=== PATIENT | female | born 1985 | race Caucasian/White ===

== ENCOUNTER 2018-10-29 12:03 | Emergency (ER) | payer SELFPAY ==
[2018-10-29] MEDS ORDERED: NEO/POLY/HC OTIC SUSP 10 ML BTTL ONE (12:13)
--- NOTE | 2018-10-29 12:22 | ED.PDOC ---
History of Present Illness - General Chief Complaint: ENT Problem Stated Complaint: earache right Time Seen by Provider: 10/29/18 12:09 Source: patient Exam Limitations: no limitations - History of Present Illness Initial Comments: Bryce Galvin 33 y/o female came to ER with right ear draining and otalgia for the last 2 days stated had stated had been in swimming pool but does not go under water.Has DM1 on insulin. Timing/Duration: other - see hpi EENT Location: ear (R) Prearrival Treatment: no prearrival treatment Presenting Symptoms: right OTALGIA/OTORRHEA Improving Factors: cold therapy Worsening Factors: nothing Associated Symptoms: other - see hpi Allergies/Adverse Reactions: Allergies NO KNOWN ALLERGY Allergy (Verified 10/29/18 12:20) Home Medications: Ambulatory Orders Amoxicillin [Amoxil] 1,000 mg PO BID 10 Days #40 cap 10/29/18 Insulin NPH Isophane & Reg (Hu [Novolin 70/30 (70-30) 100 Unit/ml] 25 units SC DAILY 10/29/18 Insulin NPH Isophane & Reg (Hu [Novolin 70/30 (70-30) 100 Unit/ml] 30 inj SC BEDTIME 10/29/18 Tramadol HCl 100 mg PO TID PRN #20 tab 10/29/18 Review of Systems - Review of Systems EENTM: States: see HPI, ear pain All other Systems: Reviewed and Negative, No Change from Baseline Past Medical History (General) - Patient Medical History Hx Diabetes: Yes - Female History Patient is a Female of Child Bearing Age (10 -59 yrs old): Yes Hx Last Menstrual Period: 10/24/18 Patient : No Family Medical History - Family History Father Family History: Unknown Physical Exam - Physical Exam General Appearance: Alert, Comfortable, No apparent distress Eye Exam: bilateral normal Ear Exam: right ear: TM perforation, discharge, erythema - ear canal, left ear: auricle normal, canal normal, TM normal Nasal Exam: normal inspection Throat Exam: pharynx normal Neck: supple, normal inspection Cardiovascular/Respiratory: regular rate, rhythm, normal peripheral pulses, normal breath sounds Abdominal Exam: non-tender Neurologic: alert, oriented x 3 Skin Exam: normal color Progress - Progress Progress: 10/29/18 12:26 Instilled 5 drops Corticosporin ear drops right ear Departure - Departure Clinical Impression: Otitis media Qualifiers: Otitis media type: other nonsuppurative Chronicity: acute Laterality: right Recurrence: not specified as recurrent Qualified Code(s): H65.191 - Other acute nonsuppurative otitis media, right ear Otitis externa Qualifiers: Otitis externa type: unspecified type Chronicity: acute Laterality: right Qualified Code(s): H60.501 - Unspecified acute noninfective otitis externa, right ear Time of Disposition: 12:26 Disposition: Discharge to Home or Self Care Condition: Fair Departure Forms: ED Discharge - Pt. Copy, Patient Portal Self Enrollment Instructions: DI for Otitis Externa, Ear Infections (Otitis Media) (DC) Prescriptions: Amoxicillin [Amoxil] 1,000 mg PO BID 10 Days #40 cap Tramadol HCl 100 mg PO TID PRN #20 tab PRN Reason: Pain Home Medications: Ambulatory Orders Amoxicillin [Amoxil] 1,000 mg PO BID 10 Days #40 cap 10/29/18 Insulin NPH Isophane & Reg (Hu [Novolin 70/30 (70-30) 100 Unit/ml] 25 units SC DAILY 10/29/18 Insulin NPH Isophane & Reg (Hu [Novolin 70/30 (70-30) 100 Unit/ml] 30 inj SC BEDTIME 10/29/18 Tramadol HCl 100 mg PO TID PRN #20 tab 10/29/18 Additional Instructions: Need to sign up with primary Md for ENT referral [phone];Continue with Corticosporin ear drops to right ear 3 drops am/pm for 10 days
[2018-10-29 12:28] VITALS: BP 159/98; TEMP 97.2; O2SAT 99
[2018-10-29] MEDS ORDERED: HYDROcodone 10MG/APAP 325MG 1 EA TAB PO ONE (12:33)
[2018-10-29] MEDS ORDERED: NEO/POLY/HC OTIC SUSP 10 ML BTTL RIGHT_EAR ONE (12:39)
== END 2018-10-29 12:42 | disposition home or self-care (01) ==
LOC: ER 12:03
DX: H65.191 Other acute nonsuppurative otitis media, right ear (principal); H60.501 Unspecified acute noninfective otitis externa, right ear; E10.9 Type 1 diabetes mellitus without complications; Z79.4 Long term (current) use of insulin

== ENCOUNTER 2018-11-13 02:04 | Observation (INO) | payer SELFPAY ==
[2018-11-13] MEDS ORDERED: INSULIN, REG.(HUMAN) 100 U/ML VIAL IV ONE (02:11)
[2018-11-13] MEDS ORDERED: PROMETHAZINE HCL INJ 25 MG in SODIUM CHLORIDE 0.9% 50ML 50 ML IVPB ONE ×2 (02:12→08:22)
[2018-11-13] MEDS ORDERED: SODIUM CHLORIDE 0.9% 1000ML 1,000 ML IVS ONE (02:12)
[2018-11-13] MEDS ORDERED: ALUMINUM & MAGNESIUM HYDROXIDE 30 ML UD PO ONE (02:13)
[2018-11-13] MEDS ORDERED: SODIUM CHLORIDE 0.9% 50ML 50 ML ONE ×2 (02:16→08:16)
[2018-11-13] MEDS ORDERED: PROMETHAZINE HCL INJ 25 MG/ML VIAL ONE ×2 (02:16→08:15)
[2018-11-13] MEDS ORDERED: MORPHINE SULFATE INJ 10 MG/ML VIAL IV ONE (02:47)
[2018-11-13] MEDS ORDERED: SUCRALFATE 1 GM/10 ML 1 GM UD PO ONE (03:16)
[2018-11-13] MEDS ORDERED: KCL 20MEQ/D5 1/2NS 1,000 ML IVS ONE (03:26)
--- NOTE | 2018-11-13 03:27 | RAD ---
EXAM: XR Abdomen 2 Views With XR Chest CLINICAL HISTORY: The patient is 33 years old and is Female; abd pain, nv TECHNIQUE: Frontal view of the chest, frontal view of the abdomen/pelvis and upright or decubitus view of the abdomen. COMPARISON: No relevant prior studies available. FINDINGS: LUNGS: Unremarkable. No consolidation. PLEURAL SPACE: Unremarkable. No pneumothorax. HEART: Unremarkable. No cardiomegaly. MEDIASTINUM: Unremarkable. INTRAPERITONEAL SPACE: No free air. GASTROINTESTINAL TRACT: Minimal stool is noted throughout the colon. No dilated loops of bowel are seen. There is a relative paucity of small bowel gas. BONES/JOINTS: Postsurgical change of the proximal right femur is partially visualized. OTHER FINDINGS: Calcification projects in the right lower quadrant. IMPRESSION: 1. No acute cardiopulmonary process. 2. Nonobstructive bowel gas pattern. Relative paucity of small bowel gas which may be secondary to incomplete distention versus fluid-filled loops of bowel. 3. Findings may be secondary to an appendicolith within the right lower quadrant. Electronically signed by: Ca Young MD 11/13/2018 3:25 AM CDT
[2018-11-13] MEDS ORDERED: cloNIDine HCL 0.1 MG TAB PO ONE (03:59)
[2018-11-13] MEDS ORDERED: METOPROLOL TARTRATE INJ 5 MG/5 ML VIAL IV ONE ×2 (04:53→06:06)
[2018-11-13] MEDS ORDERED: LISINOPRIL 10 MG TAB PO ONE (04:53)
[2018-11-13] MEDS ORDERED: PIPERACILLIN/TAZOBACTAM 3.375 GM in SODIUM CHLORIDE 0.9% 100ML 100 ML IVPB ONE (04:55)
--- NOTE | 2018-11-13 04:57 | CT ---
EXAM: CT Abdomen and Pelvis With Intravenous Contrast CLINICAL HISTORY: The patient is 33 years old and is Female; acute epigastric pain, htn, elev wbc, plt and glob TECHNIQUE: Axial computed tomography images of the abdomen and pelvis with intravenous contrast. Sagittal and coronal reformatted images were created and reviewed. This CT exam was performed using one or more of the following dose reduction techniques: automated exposure control, adjustment of the mA and/or kV according to patient size, and/or use of iterative reconstruction technique. COMPARISON: No relevant prior studies available. FINDINGS: LUNG BASES: Dependent densities within the lung bases is noted. PLEURAL SPACE: Small bilateral pleural effusions are present. MEDIASTINUM: Diffuse mucosal thickening involving the distal esophagus is present. ABDOMEN: LIVER: The liver is enlarged. GALLBLADDER AND BILE DUCTS: No calcified stones. No ductal dilation. PANCREAS: The pancreas is atrophic. SPLEEN: Unremarkable. ADRENALS: Unremarkable. No mass. KIDNEYS AND URETERS: Unremarkable. No solid mass. No hydronephrosis. STOMACH AND BOWEL: The stomach is decompressed. The small bowel is also decompressed. Stool is present throughout colon. There is no mucosal thickening or evidence of bowel obstruction. PELVIS: APPENDIX: The appendix is normal in caliber without surrounding inflammation. BLADDER: The bladder is distended. REPRODUCTIVE: Unremarkable as visualized. ABDOMEN and PELVIS: INTRAPERITONEAL SPACE: Free fluid is present within the pelvis which is likely physiologic. No free air. BONES/JOINTS: Postsurgical change of the proximal right femur is present. SOFT TISSUES: The soft tissues are normal. VASCULATURE: Unremarkable. No abdominal aortic aneurysm. LYMPH NODES: Unremarkable. No enlarged lymph nodes. IMPRESSION: 1. Small bilateral pleural effusions with compressive atelectasis. 2. Diffuse mucosal thickening of the esophagus which may be secondary to esophagitis. 3. Significantly distended urinary bladder. Electronically signed by: Ca Young MD 11/13/2018 4:55 AM CDT
[2018-11-13] MEDS ORDERED: PANTOPRAZOLE SODIUM IV 40 MG VIAL IV ONE (04:59)
[2018-11-13] MEDS ORDERED: PIPERACILLIN/TAZOBACTAM 3.375 GM VIAL IVPB ONE (05:01)
[2018-11-13] MEDS ORDERED: SODIUM CHLORIDE 0.9% 100ML 100 ML IVPB ONE ×2 (05:02)
[2018-11-13] MEDS ORDERED: DEXTROSE 10% 1000ML 1,000 ML IVS ONE (05:15)
--- NOTE | 2018-11-13 05:29 | ED.PDOC ---
History of Present Illness - General Chief Complaint: GI Problem Stated Complaint: abdomen pain, N/V, elevated BS Time Seen by Provider: 11/13/18 02:08 Source: patient Exam Limitations: no limitations - History of Present Illness Initial Comments: the patient is a 33-year-old female presenting to the emergency room secondary to acute abdominal pain starting in the epigastric areaproximally 5 hours prior to arrival. She has had several episodes of nausea and vomiting. She is a insulin-dependent diabetic and reports that she has been taking her insulin however she has not been able to check it in quite a while. EMS got a blood sugar around 350 when they picked her up. The patient is in obvious discomfort. She denies any fevers. She states she was feeling fine immediately prior to this. No syncope or near syncope. Only time she has chest pain is when she is throwing up. No rash. No urinary symptoms. No new back pain. the patient is also complaining of otitis externa on the right. Timing/Duration: 4-6 hours Severity: severe Improving Factors: nothing Worsening Factors: nothing Associated Symptoms: loss of appetite, malaise, nausea/vomiting, weakness Allergies/Adverse Reactions: Allergies NO KNOWN ALLERGY Allergy (Verified 11/13/18 02:33) Home Medications: Ambulatory Orders Insulin NPH Isophane & Reg (Hu [Novolin 70/30 (70-30) 100 Unit/ml] 25 units SC DAILY 10/29/18 Insulin NPH Isophane & Reg (Hu [Novolin 70/30 (70-30) 100 Unit/ml] 35 inj SC BEDTIME 10/29/18 Review of Systems - Review of Systems Constitutional: States: malaise EENTM: States: no symptoms reported Respiratory: States: no symptoms reported Cardiology: States: no symptoms reported Gastrointestinal/Abdominal: States: abdominal pain, nausea, vomiting Genitourinary: States: no symptoms reported Musculoskeletal: States: no symptoms reported Skin: States: no symptoms reported Neurological: States: no symptoms reported Endocrine: States: no symptoms reported All other Systems: No Change from Baseline Past Medical History (General) - Patient Medical History Hx Seizures: No Hx Stroke: No Hx Dementia: No Hx Asthma: No Hx of COPD: No Hx Cardiac Disorders: No Hx Congestive Heart Failure: No Hx Pacemaker: No Hx Hypertension: No Hx Thyroid Disease: No Hx Diabetes: Yes Hx Gastroesophageal Reflux: No Hx Renal Disease: No Hx Cancer: No Hx of HIV: No Hx Hepatitis C: No Hx MRSA: No Surgical History: other - Female History Hx Last Menstrual Period: 10/24/18 Patient : No Family Medical History - Family History Father Family History: Unknown Mother Family History: No Known Physical Exam - Physical Exam General Appearance: Alert, Anxious, Obvious distress Eye Exam: bilateral normal Ears, Nose, Throat: hearing grossly normal, normal ENT inspection, normal pharynx Neck: full range of motion, supple Respiratory: lungs clear, normal breath sounds, no respiratory distress, no accessory muscle use Cardiovascular/Chest: normal peripheral pulses, regular rate, rhythm, no edema Peripheral Pulses: radial,right: 2+, radial,left: 2+, dorsalis pedis,right: 2+, dorsalis pedis,left: 2+ Gastrointestinal/Abdominal: other - epigastric discomfort palpation. She does have some guarding. No definite palpable mass. Rectal Exam: deferred Back Exam: no CVA tenderness, no vertebral tenderness Extremity: normal range of motion, non-tender, normal inspection, no pedal edema, no calf tenderness, normal capillary refill Neurologic: hypoid gear generator II-XII nml as tested, alert, oriented x 3 Skin Exam: pallor Comments: Vital Signs - 24 hr 11/13/18 11/13/18 11/13/18 02:05 03:00 04:00 Temperature 98.3 F Pulse Rate [ 99 H 93 H 90 monitor] Respiratory 20 18 16 Rate Blood Pressure 182/116 162/106 184/117 [Right Arm] O2 Sat by Pulse 100 98 100 Oximetry Progress - Progress Progress: 11/13/18 06:47 the patient is a 33-year-old female presenting primarily due to abrupt onset of severe epigastric pain with associated nausea and vomiting. Source of this based on the CT scan is likely significant esophagitis and gastritis. She has received several nausea medications and acid reducing medications. She is continuing to have symptoms so she will be brought in for this. She does appear to have significantly uncontrolled insulin-dependent diabetes. This seems to have some caused her some significant dehydration over the past couple of weeks as she has not been able to monitor her blood sugars. She has received about 2- 1/2 L of IV fluids here today for that. The patient does also have a urinary tract infection and is being started on Zosyn for now. Urine culture is being done. She largely seems to be asymptomatic from the urinary tract infection. The patient also has otitis externa of the right ear. Ciprodex drops are being started for this. The patient also has uncontrolled hypertension. I'm unsure how much of this is chronic and how much of this is reactive. She has received several doses of IV metoprolol. She threw up her oral antihypertensive medications that she was given here. This will need to be followed to determine if she needs chronic treatment. pressures are better than upon arrival however they are still significantly higher than desired. She does have small pleural effusions. I'm uncertain if this is simply normal for her or if this is related to the hypertension itself. This will need to be followed. As far as the patient's hyperglycemia, she actually corrected very quickly with 8 units of IV insulin and indeed I had to supplement her with D10 for a few hours to prevent her from bottoming out. She does seem to be very sensitive to the insulin. Additionally she did receive 2 mg of IV morphine for abdominal pain after she had had an IV piggyback of 25 mg of Phenergan. This did cause her to reduce her respiratory drive and cause some mild desaturations. This was corrected with low-flow oxygen and the patient has since resumed normal saturations. initial lab work showed a significant monocytosis. Probably large part of this is due to dehydration as it did correct with rehydration mostly. This does need to be repeated. This may partially be a reactive thrombocytosis. this does need to be followed to make sure it is not a chronic problem for her. the patient has agreed to the plan above. - Results/Orders Results/Orders: acute abdominal series fails show any acute pathology. No obvious obstruction or perforation. CT of the abdomen and pelvis shows thickening of the distal esophagus consistent with esophagitis. She also does have small bilateral pleural effusions. Laboratory Results - last 24 hr 11/13/18 11/13/18 11/13/18 02:12 02:12 02:25 WBC 13.4 H RBC 4.37 Hgb 12.1 Hct 37.0 MCV 84.6 MCH 27.6 MCHC 32.7 L RDW 13.8 Plt Count 806 H MPV 6.8 L Absolute Neuts (auto) 10.00 H Absolute Lymphs (auto) 2.40 Absolute Monos (auto) 0.60 Absolute Eos (auto) 0.20 Absolute Basos (auto) 0.20 H Neutrophils % 74.5 Lymphocytes % 18.0 L Monocytes % 4.5 Eosinophils % 1.3 Basophils % 1.7 PT INR PTT (SP) D-Dimer, Quantitative Sodium 139 Potassium 4.1 Chloride 96 L Carbon Dioxide 29 Anion Gap 18.1 H BUN 15 Creatinine 0.99 BUN/Creatinine Ratio 15.2 POC Glucose Random Glucose 253 H Serum Osmolality 287.0 Lactic Acid Calcium 10.1 Magnesium 1.9 Total Bilirubin 0.6 AST 31 ALT 17 Alkaline Phosphatase 112 Creatine Kinase CK-MB (CK-2) CK-MB (CK-2) % Troponin I B-Natriuretic Peptide Serum Total Protein 8.8 H Albumin 3.2 Globulin 5.6 H Albumin/Globulin Ratio 0.6 L Amylase 30 Lipase 25 TSH Serum HCG, Qual Urine Color Urine Appearance Urine pH Ur Specific [place] Urine Protein Urine Glucose (UA) Urine Ketones Urine Blood Urine Nitrite Urine Bilirubin Urine Urobilinogen Ur Leukocyte Esterase Urine RBC Urine WBC Ur Epithelial Cells Urine Bacteria Urine Opiates Screen Urine Barbiturates Ur Phencyclidine Scrn U Amphetamin/Meth Scrn U Benzodiazepines Scrn U Cocaine Metab Screen U Cannabinoids Screen Serum Ketones Negative 11/13/18 11/13/18 11/13/18 02:27 03:13 03:13 WBC RBC Hgb Hct MCV MCH MCHC RDW Plt Count MPV Absolute Neuts (auto) Absolute Lymphs (auto) Absolute Monos (auto) Absolute Eos (auto) Absolute Basos (auto) Neutrophils % Lymphocytes % Monocytes % Eosinophils % Basophils % PT INR PTT (SP) D-Dimer, Quantitative Sodium Potassium Chloride Carbon Dioxide Anion Gap BUN Creatinine BUN/Creatinine Ratio POC Glucose 76 Random Glucose Serum Osmolality Lactic Acid Calcium Magnesium Total Bilirubin AST ALT Alkaline Phosphatase Creatine Kinase CK-MB (CK-2) CK-MB (CK-2) % Troponin I B-Natriuretic Peptide Serum Total Protein Albumin Globulin Albumin/Globulin Ratio Amylase Lipase TSH Serum HCG, Qual Negative Urine Color Urine Appearance Urine pH Ur Specific [place] Urine Protein Urine Glucose (UA) Urine Ketones Urine Blood Urine Nitrite Urine Bilirubin Urine Urobilinogen Ur Leukocyte Esterase Urine RBC Urine WBC Ur Epithelial Cells Urine Bacteria Urine Opiates Screen Negative Urine Barbiturates Negative Ur Phencyclidine Scrn Negative U Amphetamin/Meth Scrn Negative U Benzodiazepines Scrn Negative U Cocaine Metab Screen Negative U Cannabinoids Screen Negative Serum Ketones 11/13/18 11/13/18 11/13/18 03:15 03:15 03:15 WBC 8.2 RBC 3.68 L Hgb 10.1 L Hct 31.2 L MCV 84.8 MCH 27.5 MCHC 32.5 L RDW 13.8 Plt Count 579 H MPV 6.6 L Absolute Neuts (auto) 5.70 Absolute Lymphs (auto) 1.80 Absolute Monos (auto) 0.50 Absolute Eos (auto) 0.10 Absolute Basos (auto) 0.10 Neutrophils % 69.7 Lymphocytes % 21.7 Monocytes % 6.4 Eosinophils % 1.2 Basophils % 1.0 PT INR PTT (SP) D-Dimer, Quantitative Sodium Potassium Chloride Carbon Dioxide Anion Gap BUN Creatinine BUN/Creatinine Ratio POC Glucose Random Glucose Serum Osmolality Lactic Acid 2.2 Calcium Magnesium Total Bilirubin AST ALT Alkaline Phosphatase Creatine Kinase 200 H CK-MB (CK-2) 7.4 H* CK-MB (CK-2) % 3.70 Troponin I < 0.02 B-Natriuretic Peptide Serum Total Protein Albumin Globulin Albumin/Globulin Ratio Amylase Lipase TSH Serum HCG, Qual Urine Color Urine Appearance Urine pH Ur Specific [place] Urine Protein Urine Glucose (UA) Urine Ketones Urine Blood Urine Nitrite Urine Bilirubin Urine Urobilinogen Ur Leukocyte Esterase Urine RBC Urine WBC Ur Epithelial Cells Urine Bacteria Urine Opiates Screen Urine Barbiturates Ur Phencyclidine Scrn U Amphetamin/Meth Scrn U Benzodiazepines Scrn U Cocaine Metab Screen U Cannabinoids Screen Serum Ketones 11/13/18 11/13/18 11/13/18 03:24 04:39 04:57 WBC RBC Hgb Hct MCV MCH MCHC RDW Plt Count MPV Absolute Neuts (auto) Absolute Lymphs (auto) Absolute Monos (auto) Absolute Eos (auto) Absolute Basos (auto) Neutrophils % Lymphocytes % Monocytes % Eosinophils % Basophils % PT INR PTT (SP) D-Dimer, Quantitative Sodium Potassium Chloride Carbon Dioxide Anion Gap BUN Creatinine BUN/Creatinine Ratio POC Glucose Random Glucose Serum Osmolality Lactic Acid Calcium Magnesium Total Bilirubin AST ALT Alkaline Phosphatase Creatine Kinase 216 H* CK-MB (CK-2) 7.8 H* CK-MB (CK-2) % 3.61 Troponin I < 0.02 B-Natriuretic Peptide 161.0 H Serum Total Protein Albumin Globulin Albumin/Globulin Ratio Amylase Lipase TSH 1.69 Serum HCG, Qual Urine Color Straw Urine Appearance Clear Urine pH 8.5 H Ur Specific [place] 1.020 Urine Protein 100 H Urine Glucose (UA) 100 H Urine Ketones Negative Urine Blood Moderate H Urine Nitrite Negative Urine Bilirubin Negative Urine Urobilinogen 0.2 Ur Leukocyte Esterase Small H Urine RBC 20-30 H Urine WBC 20-30 H Ur Epithelial Cells 5-10 Urine Bacteria 2+ H Urine Opiates Screen Urine Barbiturates Ur Phencyclidine Scrn U Amphetamin/Meth Scrn U Benzodiazepines Scrn U Cocaine Metab Screen U Cannabinoids Screen Serum Ketones 11/13/18 11/13/18 11/13/18 04:57 04:58 06:24 WBC RBC Hgb Hct MCV MCH MCHC RDW Plt Count MPV Absolute Neuts (auto) Absolute Lymphs (auto) Absolute Monos (auto) Absolute Eos (auto) Absolute Basos (auto) Neutrophils % Lymphocytes % Monocytes % Eosinophils % Basophils % PT 9.9 INR 0.99 PTT (SP) 25.5 D-Dimer, Quantitative 0.72 H* Sodium Potassium Chloride Carbon Dioxide Anion Gap BUN Creatinine BUN/Creatinine Ratio POC Glucose 51 L 97 Random Glucose Serum Osmolality Lactic Acid Calcium Magnesium Total Bilirubin AST ALT Alkaline Phosphatase Creatine Kinase CK-MB (CK-2) CK-MB (CK-2) % Troponin I B-Natriuretic Peptide Serum Total Protein Albumin Globulin Albumin/Globulin Ratio Amylase Lipase TSH Serum HCG, Qual Urine Color Urine Appearance Urine pH Ur Specific [place] Urine Protein Urine Glucose (UA) Urine Ketones Urine Blood Urine Nitrite Urine Bilirubin Urine Urobilinogen Ur Leukocyte Esterase Urine RBC Urine WBC Ur Epithelial Cells Urine Bacteria Urine Opiates Screen Urine Barbiturates Ur Phencyclidine Scrn U Amphetamin/Meth Scrn U Benzodiazepines Scrn U Cocaine Metab Screen U Cannabinoids Screen Serum Ketones EKG shows normal sinus rhythm at 93 bpm area borderline R-wave progression in anterior leads. Nonspecific ST segment changes in numerous leads. QT corrected interval of 527. Normal axis. Departure - Departure Clinical Impression: Dehydration, Thrombocytosis, Uncontrolled hypertension, Pleural effusion, Cystitis, Esophagitis Otitis externa Qualifiers: Otitis externa type: swimmer's ear Chronicity: acute Laterality: right Qualified Code(s): H60.331 - Swimmer's ear, right ear Uncontrolled type 1 diabetes mellitus Qualifiers: Glycemic state: with hyperglycemia Qualified Code(s): E10.65 - Type 1 diabetes mellitus with hyperglycemia Disposition: Admit Patient Condition: Serious Departure Forms: ED Discharge - Pt. Copy, Patient Portal Self Enrollment Referrals: UNKNOWN,PHYSICIAN [Primary Care Provider] - 1-2 Weeks Home Medications: Ambulatory Orders Insulin NPH Isophane & Reg (Hu [Novolin 70/30 (70-30) 100 Unit/ml] 25 units SC DAILY 10/29/18 Insulin NPH Isophane & Reg (Hu [Novolin 70/30 (70-30) 100 Unit/ml] 35 inj SC BEDTIME 10/29/18 Decision To Admit - Decistion To Admit Decision to Admit Reason: Medical Nature Decision to Admit Date: 11/13/18 Decision to Admit Time: 06:55
[2018-11-13] MEDS ORDERED: ONDANSETRON INJ 4 MG/2 ML VIAL ONE (06:13)
[2018-11-13] MEDS ORDERED: ONDANSETRON INJ 4 MG/2 ML VIAL IV ONE (06:13)
[2018-11-13] MEDS ORDERED: CIPROFLOXACIN/DEXAMETH OTIC 7.5ML BOTTLE RIGHT_EAR ONE (06:17)
--- NOTE | 2018-11-13 07:33 | HP ---
SUPERVISING PHYSICIAN: Wilbur Rojas MD CHIEF COMPLAINT: Nausea or vomiting and abdominal pain. HISTORY OF PRESENT ILLNESS: Ms. Galvin is a 33 year-old female who presented to the Emergency Room earlier this morning due to acute onset of abdominal pain in the epigastric region approximately 5 hours prior to arrival after she had eaten supper. She does have a history of insulin-dependent diabetes mellitus and is basically treating herself. She has not been followed by a physician. EMS noted her blood sugar on arrival was 350. She denied fever or chills. She has had some epigastric discomfort, chest pains when she was actually vomiting, otherwise she did have a complaint of a right earache which started approximately a week ago. Her initial laboratory studies on arrival to the Emergency Department showed she had a white count of 13,400 with a hemoglobin of 12.1 and hematocrit 37.0, platelet count of 806,000. Differential showed to be with a mild left shift. Coagulation studies showed a D-dimer that was slightly elevated at 0.72. Chemistries initially showed a blood sugar of 253, potassium 4.1, anion gap was elevated at 18.1. C02 was normal at 29. Liver functions all within normal limits. Magnesium 1.9, lactic acid 2.2, troponin less than 0.02. TSH was normal, test was negative. Amylase and lipase were all within normal limits. She was given Zofran and morphine. It was also noted on her vital signs she was showing to be hypertensive with a blood pressure initially of 182/116. She was treated with Lopressor and Clonidine with good results in improvement of her blood pressure. Urinalysis showed she had a urinary tract infection with microscopic showing 20 to 40 RBCs, 20 to 30 WBCs and 2+ bacteria. She was given a dose of Zosyn, started on IV fluids and given some IV insulin. She was observed for several hours but continued to have some nausea and given that she is a type 1 diabetic, was mildly acidotic based off her anion gap. Dr. Morris, Emergency Room physician required the patient be admission for continuation of treatment and further evaluation. PAST MEDICAL HISTORY: 1. Type 1 diabetes mellitus, poorly controlled. 2. 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 3. Chronic gastroparesis. PAST SURGICAL HISTORY: 1. Right ear surgery. 2. Right hip surgery with a fracture repair of open reduction and internal fixation. 3. Right ankle open reduction and internal fixation. CURRENT MEDICATIONS: 1. Novolin 70/30, 35 units at bedtime. 2. Novolin 70/20, 25 units daily. ALLERGIES: No known drug allergies. FAMILY HISTORY: Both parents are . Father at age 29 due to suicide. Mother at age 50 from an overdose. She does have a history apparently of some cancers, diabetes and hypertension in other family members. She has two sisters that are supposedly healthy. SOCIAL HISTORY: The patient was raised by her grandmother. She just recently moved to [place] and lives with a roommate. She is and is currently not working. She denies ever smoking tobacco but does report that she smokes marijuana on occasion, last time apparently was three months ago. She does drink alcohol but on rare occasions. REVIEW OF SYSTEMS: CONSTITUTIONAL: Denies any fevers, chills, general malaise, body aches or unintentional weight loss. HEENT: Positive for right earache with drainage, symptoms approximately a week. Negative for nasal congestion, sore throat, headaches. RESPIRATORY: Denies shortness of breath, wheezing or coughing. CARDIOVASCULAR: Denies chest pain or palpitations, syncopal episodes or tachycardia. GASTROINTESTINAL: Positive for abdominal pain, nausea and vomiting. GENITOURINARY: Denies dysuria, hematuria, polyuria. She does have a history of multiple urinary tract infections in the past. MUSCULOSKELETAL: Denies general arthralgias, joint swelling. SKIN: No reported lesions, rashes or sores. NEUROLOGIC: Negative for any seizure activity, ataxia, headaches, vision changes. ENDOCRINE: Positive for poorly controlled diabetes. PHYSICAL EXAMINATION: VITAL SIGNS: Initially in the Emergency Room, temperature was 98.3, pulse 99, blood pressure 182/116, saturation 100% on room air with respirations of 20 and actively vomiting. After given medications to stop her emesis and Lopressor and Clonidine for treatment of blood pressure prior to admission, blood pressure on admission to medical/surgical floor, blood pressure was 121/80. Respirations were 16, saturation 96% on nasal cannula at two liters. Admission weight 66.4 kg. GENERAL: Examination on the medical/surgical floor, the patient was resting comfortably and appeared to be in no acute distress. She was alert. HEENT: Right ear had purulent drainage in the internal canal. Tympanic membrane not visible. Serena tympanic membrane within normal limits. Oropharynx is pink, dry mucous membranes. No lesions. NECK: Supple, full range of motion . No jugular venous distention noted. CHEST: Lungs clear to auscultation bilaterally without any rhonchi, wheezes, or rales. CARDIOVASCULAR: Regular rate and rhythm without any appreciable murmurs, gallops, or rubs. ABDOMEN: Soft with some epigastric discomfort on palpation with some guarding but no point tenderness, no rebound tenderness, no palpable masses. BACK: Without any CVA or vertebral tenderness. EXTREMITIES: There is no cyanosis, clubbing or edema. NEUROLOGIC: Cranial nerves II-XII are grossly intact. She was oriented x3. SKIN: Pale and dry. LABORATORY: CBC on admission showed a white count of 13,400 with hemoglobin of 12.1 and hematocrit 37.0. Platelet count 806,000, differential showed to be with just a slight left shift. Coagulation studies showed a slightly elevated D-dimer at 0.72, PT of 9.9, PTT 25.5. Chemistries on admission showed a sodium of 139, potassium 4.1, glucose 253, BUN 15, creatinine 0.99, anion gap slightly elevated at 18.!. Calcium 10.1, magnesium 1.9. Liver functions all within normal limits. Lipase and amylase both normal. TSH normal at 1.69, serum HCG was negative. Hemoglobin A1C pending. Troponin less than 0.02. CPK elevated at 200. Repeat troponin prior to admission showed to be less than 0.02 with a BNP slightly elevated at 161. CPK 216. Urinalysis showed specific gravity of 8.5. 100 of protein, 100 of glucose, moderate amount of blood, small amount of leukoesterase. RBCs on microscopic of 20 to 30 as well as WBCs, 5 to 10 epithelials, 2+ bacteria. Serum ketones were negative. Drug screen negative. MICROBIOLOGY: Blood cultures pending. Urine culture pending. RADIOLOGY: She initially had an abdominal x-ray in the Emergency Room and per radiology interpretation showed no acute cardiopulmonary process. There was note of nonspecific bowel gas, relative paucity a small bowel gas which may be secondary to incomplete distention versus fluid-filled loops of bowel. Findings may be secondary to appendicolith within the right lower quadrant. This was followed up with an abdominal/pelvis CT with IV contrast and per radiology interpretation, there was note of small bilateral pleural effusions with compressive atelectasis with diffuse mucosal thickening of the esophagus which may be secondary to esophagitis with a significant distended urinary bladder. Pancreas was noted to be atrophic with liver showing to be enlarged, gallbladder and bile ducts no calcified stones, no ductal dilation. ASSESSMENT: 1. Hypertensive urgency likely due to acute stress state from persistent nausea and vomiting with patient not currently on any antihypertensive. 2. Diabetes mellitus type 1, poorly controlled, on Novolin 70/30. 3. Nausea and vomiting likely due to gastroparesis from complications of poorly controlled diabetes. 4. Urinary tract infection. 5. Right otitis externa. PLAN: The patient is going to be placed in observation for continued treatment. We will go ahead and start her on some IV maintenance fluids with D5 while she remains n.p.o., until she can tolerate oral intake. I will go ahead and start her on some Levemir slightly scale every 6 hours and transition to a.c. and h.s. once she is taking oral nutrition. Will give her Phenergan and Zofran as needed for nausea. Go ahead and treat her with some morphine and Dilaudid if needed for pain. I have scheduled her on Reglan, initially 10 mg prior to initiation of oral intake and then every 6 hours a.c. and h.s. 5 mg. I anticipate her length of stay to be one to two days. I have also started her on antibiotics after she was given Zosyn in the Emergency Room, will continue the Rocephin an await culture results. Given that she is having significant discomfort in the right upper quadrant despite her CPK being negative, will consider doing an ultrasound in the morning to further rule out any gallbladder pathology. I did discuss management of her diabetes at length and she will need reinforcement prior to discharge. She currently is not seen by any primary care provider and will need to be set up at least through the [facility] with financial arrangements made as she is not on any kind of financial assistance program and is currently unemployed. Given her current financial situation, we will get a Social Service consultation in the morning. We will advance her diet later today or in the morning and if she tolerates will anticipate discharge later tomorrow. At discharge, she is financially handicapped and that will be taken into consideration at discharge in regards to the treatment of her urinary tract infection as well as continued treatment of the right ear infection. She will also need to go on probably some lisinopril for further management of her blood pressure and recommendations to followup in the clinic to continue with her management of her diabetes. Until discharge, we will continue to monitor and treat as necessary. #[id number] [facility]
[2018-11-13] MEDS ORDERED: HYDROmorphone HCL INJ 2 MG/ML VIAL IV ONE (08:15)
[2018-11-13] MEDS ORDERED: GLUCAGON INJ 1 MG VIAL SUBCU PRN (12:40)
[2018-11-13] MEDS ORDERED: DEXTROSE 50% 25 GM/50 ML SYG IV PRN (12:40)
[2018-11-13] MEDS ORDERED: SODIUM CHLORIDE 0.9% (FLUSH) 10 ML SYG IV PRN (12:40)
[2018-11-13] MEDS ORDERED: IV SET AND CAP CHANGE INJ INJ SCH (13:00)
[2018-11-13] MEDS ORDERED: INSULIN DETEMIR 100 UNITS/ML PEN SUBCU ONE (13:07)
[2018-11-13] MEDS ORDERED: SODIUM CHL 0.9% 50ML MIN-BAG+ 50 ML IVPB ONE (13:12)
[2018-11-13] MEDS ORDERED: cefTRIAXone SODIUM 1 GM VIAL ONE (13:13)
[2018-11-13] MEDS: cefTRIAXone SODIUM 1 GM in SODIUM CHL 0.9% 50ML MIN-BAG+ 50 ML IVPB SCH (13:20)
[2018-11-13] MEDS: KCL 20MEQ/D5NS 1,000 ML IVS PRN ×2 (13:21→21:59)
[2018-11-13] MEDS ORDERED: INSULIN LISPRO 100 UNITS/ML PEN SUBCU SCH (16:30)
[2018-11-13] MEDS: INSULIN LISPRO 100 UNITS/ML PEN SUBCU SCH (18:37)
[2018-11-13] MEDS ORDERED: METOCLOPRAMIDE HCL INJ 10 MG/2 ML VIAL IV ONE (19:27)
[2018-11-13] MEDS: CIPROFLOXACIN/DEXAMETH OTIC 7.5ML BOTTLE RIGHT_EAR SCH (20:40)
[2018-11-13] MEDS: ACETAMINOPHEN 325 MG TAB PO PRN (21:58)
[2018-11-14] MEDS: INSULIN LISPRO 100 UNITS/ML PEN SUBCU SCH ×4 (00:11→17:53)
[2018-11-14] MEDS ORDERED: KETOROLAC TROMETHAMINE INJ 30 MG/ML VIAL IV ONE (02:05)
[2018-11-14] MEDS: METOCLOPRAMIDE HCL 5 MG TAB PO SCH ×4 (06:21→21:22)
[2018-11-14] MEDS: KCL 20MEQ/D5NS 1,000 ML IVS PRN ×2 (06:22→18:01)
[2018-11-14] MEDS: CIPROFLOXACIN/DEXAMETH OTIC 7.5ML BOTTLE RIGHT_EAR SCH ×2 (08:22→21:22)
[2018-11-14] MEDS ORDERED: FLUCONAZOLE 150 MG TAB PO ONE (09:00)
[2018-11-14] MEDS: LISINOPRIL 5 MG TAB PO SCH (09:45)
[2018-11-14] MEDS ORDERED: NITROGLYCERIN 0.4 MG 25 EA TAB SL PRN (10:38)
--- NOTE | 2018-11-14 11:13 | RAD ---
PROVIDED CLINICAL HISTORY/REASON FOR EXAM: chest pain Findings: Number of images: Two Location: Frontal and lateral chest radiographs Cardiac silhouette and pulmonary vasculature are within normal limits. No pneumothorax. Small bilateral pleural effusion. There are diffuse interstitial and patchy airspace opacities bilaterally. These findings have increased from November 13, 2018. IMPRESSION: Marked increase in diffuse bilateral airspace disease which may reflect pulmonary edema and/or pneumonia. Small bilateral pleural effusions. Electronically signed by: Carter Sue MD 11/14/2018 11:11 AM CDT
[2018-11-14] MEDS ORDERED: METOPROLOL TARTRATE 25 MG TAB PO ONE (11:50)
[2018-11-14] MEDS ORDERED: cloNIDine HCL 0.1 MG TAB PO ONE (11:50)
[2018-11-14] MEDS ORDERED: cefTRIAXone SODIUM 1 GM VIAL ONE (12:46)
[2018-11-14] MEDS ORDERED: SODIUM CHL 0.9% 50ML MIN-BAG+ 50 ML IVPB ONE (12:46)
[2018-11-14] MEDS: cefTRIAXone SODIUM 1 GM in SODIUM CHL 0.9% 50ML MIN-BAG+ 50 ML IVPB SCH (12:58)
--- NOTE | 2018-11-14 15:30 | US ---
EXAM DESCRIPTION: Gall Bladder: ULTRASOUND. CLINICAL HISTORY: Abdominal/chest pain COMPARISON: Chest x-ray on the same visit. Abdominal pelvic CT scan yesterday. TECHNIQUE: Transabdominal scanning: Gutierrez-scale and Doppler modes. FINDINGS: Gallbladder: normal size, shape, echogenicity; no intraluminal stones or sludge. No fluid around the gallbladder. No wall thickening. 2.3 mm Non-tender with transducer pressure. Common bile duct: caliber 2.5 mm within normal limits. Liver: normal echogenicity; contour liver capsule smooth where seen. No fluid around the liver. Intrahepatic biliary ducts normal caliber. Doppler hepatopedal flow portal vein.. Long axis right lobe 16.5 cm. Pancreas: normal size and echogenicity. Duct not seen. Aorta: 1.5 cm proximal. Right kidney: 10.2 cm long axis. Normal cortical thickness and echogenicity.. No hydronephrosis, no echogenic stones, and no perirenal fluid. IMPRESSION: Normal ultrasound of the right upper quadrant of the abdomen. Electronically signed by: Sunny Hernandez MD 11/14/2018 3:28 PM CDT
[2018-11-14] MEDS ORDERED: amLODIPine BESYLATE 5 MG TAB PO ONE (16:30)
[2018-11-14] MEDS ORDERED: MAGNESIUM SULFATE PREMIX 2GM 2 GM in PREMIX BAG 1 BAG IVPB ONE (18:50)
[2018-11-14] MEDS ORDERED: MAGNESIUM SULFATE PREMIX 2GM 50 ML IVPB ONE (19:51)
--- NOTE | 2018-11-14 21:01 | PN ---
DATE: 11/14/18 SUPERVISING PHYSICIAN: Franklin Gibson M.D. SUBJECTIVE: The patient did well overnight but this morning his blood pressure was up again at 159/98. She was given some Lisinopril and Clonidine but was complaining of chest pressure. With 1 Nitro she did have relief. The pain was described as a pressure more so on her mid chest epigastric region. She has not had any nausea or vomiting. She was denying any shortness of breath or diaphoresis. OBJECTIVE: VITAL SIGNS: Blood pressure 140/100. I's and O's show weight is 57.1 kg. She has good output. GENERAL: The patient appears tired but does appear to be in no acute distress. She is alert. At time of exam, the patient is actually not describing any chest pain since she was given a single Nitro. CHEST: Clear to auscultation bilaterally. HEART: Regular rate and rhythm without appreciable murmurs, gallops, or rubs. ABDOMEN: Soft, non-tender. Positive bowel sounds. EXTREMITIES: Without any edema. NEUROLOGIC: She was alert and oriented times three. LABORATORY: White count 7,000, hemoglobin 10, hematocrit 30.9 with a normocytic normochromic RBC indices with platelet count 564,000. Differential shows to be without a left shift. Chemistries show normal electrolytes with potassium 3.9. Blood sugar did spike up to 376. It has been running between 130 and 198. Two sets of troponin this morning showed both to be less than 0.02. CPK was normal. Calcium was low at 7.9 but corrected for low albumin at 2.1 to 9.1. Magnesium low at 1.7. Lipase and amylase were both normal. Hemoglobin A1c was 12.1. 12-lead EKG showed normal sinus rhythm with no ST or T wave changes to indicate any ischemia or acute injury pattern. No change from admission. MICROBIOLOGY: Urine culture is pending. Blood cultures remain negative. RADIOLOGY: She had a gallbladder ultrasound that was without any acute findings. Echocardiogram per Dr. Maloney showed mild concentric left ventricular hypertrophy, left ventricular ejection fraction estimated to be at 65 to 70% with a grade 2 diastolic dysfunction consistent with impaired relaxation and mild to moderate increase in filling pressures. Chest x-ray after she complained of chest pains per radiology interpretation showed marked increase in diffuse bilateral airspace disease which reflected pulmonary edema and/or pneumonia with small bilateral pleural effusions. ASSESSMENT: 1. Uncontrolled hypertensive with a grade 2 diastolic dysfunction secondary to elevated right sided filling pressures with an estimated ejection fraction of 65 to 70% not on any current medications, continuing to show elevated blood pressures but controlled with Lisinopril, Norvasc, Metoprolol and p.r.n. Clonidine. 2. Diabetes mellitus type 1, poorly controlled, on Novolin 70/30 with a current hemoglobin A1c of 12.1. 3. Nausea and vomiting secondary to gastroparesis from complications from poorly controlled diabetes. 4. Acute on chronic gastroparesis. 5. Urinary tract infection awaiting culture results. 6. Electrolyte imbalance with hypomagnesemia. 7. Right otitis externa. 8. Chest pains likely secondary to esophagitis from past episodes of nausea and vomiting with no acute findings on EKG or cardiac workup. PLAN: I had planned to discharge the patient today until she started to describe chest pains and her blood pressure is elevated. I treated her blood pressure. She has been given a beta rosas, actually Norvasc and Lisinopril and Clonidine. Currently at the time of the note was showing a blood pressure of 122/75 and no chest pains. No shortness of breath. She is on DVT prophylaxis with Lovenox. She is having adequate oral intake. Will continue to follow her blood sugars per protocol. She is on Rocephin and changed to oral Cipro for treatment of her urinary tract infection. Those cultures are still pending. I did complete an echo this morning and gallbladder with no acute findings other than just some mild elevated right sided filling pressures with a grade 2 diastolic dysfunction secondary to poorly controlled hypertension. Will continue to follow the patient on telemetry and anticipate discharging tomorrow. I have advanced her diet to an ADA 1800 calorie diet. She is tolerating this without any complications. She is going to have an appointment to followup with [facility]. Until we can discharge will continue to monitor and treat as necessary. On discharge, more likely will discharge on Lisinopril 5 mg as well as Norvasc 2.5 mg and treatment for urinary tract infection with ciprofloxacin as well as Phenergan and Reglan for treatment of her gastroparesis and nausea and vomiting. #[id number] [facility]
[2018-11-14] MEDS ORDERED: INSULIN DETEMIR 100 UNITS/ML PEN SUBCU ONE (21:27)
[2018-11-14] MEDS ORDERED: tiZANidine 4 MG TAB ONE (21:32)
[2018-11-14] MEDS ORDERED: tiZANidine 4 MG TAB PO ONE (21:34)
[2018-11-15] MEDS: ACETAMINOPHEN 325 MG TAB PO PRN (01:21)
[2018-11-15] MEDS: INSULIN LISPRO 100 UNITS/ML PEN SUBCU SCH (01:40)
[2018-11-15 03:03] VITALS: TEMP 97.7
[2018-11-15] MEDS ORDERED: LORazepam 0.5 MG TAB PO ONE (03:28)
[2018-11-15] MEDS: KCL 20MEQ/D5NS 1,000 ML IVS PRN (03:47)
[2018-11-15 06:17] VITALS: BP 149/91
[2018-11-15] MEDS: METOCLOPRAMIDE HCL 5 MG TAB PO SCH (06:50)
[2018-11-15] MEDS ORDERED: INSULIN LISPRO 100 UNITS/ML PEN SUBCU SCH (07:00)
[2018-11-15 07:58] VITALS: O2SAT 95
[2018-11-15] MEDS: LISINOPRIL 5 MG TAB PO SCH (09:09)
[2018-11-15] MEDS: CIPROFLOXACIN/DEXAMETH OTIC 7.5ML BOTTLE RIGHT_EAR SCH (09:11)
--- NOTE | 2018-11-16 08:40 | DS ---
SUPERVISING PHYSICIAN: Franklin Gibson MD ADMISSION DIAGNOSIS: 1. Hypertensive urgency likely due to acute stress state from persistent nausea and vomiting with patient not currently on any antihypertensive. 2. Diabetes mellitus type 1, poorly controlled, on Novolin 70/30. 3. Nausea and vomiting likely due to gastroparesis from complications of poorly controlled diabetes. 4. Urinary tract infection. 5. Right otitis externa. DISCHARGE DIAGNOSIS: 1. Uncontrolled hypertensive with a grade 2 diastolic dysfunction secondary to elevated right sided filling pressures with an estimated ejection fraction of 65 to 70% not on any current medications, continuing to show elevated blood pressures but controlled with Lisinopril, Norvasc, Metoprolol and p.r.n. Clonidine. 2. Diabetes mellitus type 1, poorly controlled, on Novolin 70/30 with a current hemoglobin A1c of 12.1. 3. Nausea and vomiting secondary to gastroparesis from complications from poorly controlled diabetes. 4. Acute on chronic gastroparesis. 5. Urinary tract infection awaiting culture results. 6. Electrolyte imbalance with hypomagnesemia. 7. Right otitis externa. 8. Chest pains likely secondary to esophagitis from past episodes of nausea and vomiting with no acute findings on EKG or cardiac workup. REASON FOR HOSPITALIZATION: Ms. Galvin is a 33 year-old female who presented to the Emergency Room earlier this morning due to acute onset of abdominal pain in the epigastric region approximately 5 hours prior to arrival after she had eaten supper. She does have a history of insulin-dependent diabetes mellitus and is basically treating herself. She has not been followed by a physician. EMS noted her blood sugar on arrival was 350. She denied fever or chills. She has had some epigastric discomfort, chest pains when she was actually vomiting, otherwise she did have a complaint of a right earache which started approximately a week ago. Her initial laboratory studies on arrival to the Emergency Department showed she had a white count of 13,400 with a hemoglobin of 12.1 and hematocrit 37.0, platelet count of 806,000. Differential showed to be with a mild left shift. Coagulation studies showed a D-dimer that was slightly elevated at 0.72. Chemistries initially showed a blood sugar of 253, potassium 4.1, anion gap was elevated at 18.1. C02 was normal at 29. Liver functions all within normal limits. Magnesium 1.9, lactic acid 2.2, troponin less than 0.02. TSH was normal, test was negative. Amylase and lipase were all within normal limits. She was given Zofran and morphine. It was also noted on her vital signs she was showing to be hypertensive with a blood pressure initially of 182/116. She was treated with Lopressor and Clonidine with good results in improvement of her blood pressure. Urinalysis showed she had a urinary tract infection with microscopic showing 20 to 40 RBCs, 20 to 30 WBCs and 2+ bacteria. She was given a dose of Zosyn, started on IV fluids and given some IV insulin. She was observed for several hours but continued to have some nausea and given that she is a type 1 diabetic, was mildly acidotic based off her anion gap. Dr. Morris, Emergency Room physician required the patient be admission for continuation of treatment and further evaluation. LABORATORY: White count initially was 13,400. At discharge, it was 7,000. hemoglobin at discharge was 10, hematocrit 30.9. Platelet count 564,000. Differential was without a left shift. Coagulation studies showed a normal PT, PTT, but elevated D-dimer at 0.72. Chemistries on admission showed normal electrolytes. Anion gap was slightly elevated at 18.1, BUN 15, creatinine 0.9, glucose initially was 253. Liver functions were all within normal limits. Magnesium 1.9. Serum HCG was negative. She had a troponin less than 0.02. Lactic acid 2.2 on admission. She had a second set of enzymes that showed troponin less than 0.02. CPK was slightly elevated at 316. Prior to discharge, her electrolytes had normalized. She again had 3 sets of cardiac enzymes due to the reported chest pains, all being within normal limits. Amylase and lipase were both normal. TSH normal. Blood sugars ranged between 51 to 376. Hemoglobin A1c was 12.1. Urinalysis on admission showed microscopic with 20 to 30 RBCs, 20 to 30 WBCs, 5 to 10 epithelials, 2+ bacteria. Dipstick was positive for moderate amount of blood, 100 protein, 100 glucose, negative for ketones, small amount of leukocyte esterase. She had two drug screens that both without any findings and ketone negative. MICROBIOLOGY: Blood cultures remained negative at 48 hours. Final urine culture showed less than 10,000 colony forming units per mL, urogenital lenard present. RADIOLOGY: She had an abdominal x-ray initially in the Emergency Room prior to admission and per radiologic interpretation showed no acute cardiopulmonary disease. There was nonobstructed gas pattern. This was followed up with a CT of the abdomen and pelvis with contrast and per radiologic interpretation notes small bilateral pleural effusions with compressive atelectasis. There was diffuse mucosal thickening in the esophagus which may represent esophagitis and significantly distended urinary bladder. She then had a chest x-ray after admission and per radiologic interpretation showed marked increased diffuse bilateral airspace disease which could represent pulmonary edema or pneumonia. She had a gallbladder ultrasound that showed normal ultrasound of the right upper quadrant per radiologic interpretation. She also had an echocardiogram read by Dr. Maloney showing mild concentric left ventricular hypertrophy, left ventricular ejection fraction estimated to be 65 to 70% with grade 2 diastolic dysfunction consistent with impaired relaxation and mild to moderate increase in filling pressures. HOSPITAL COURSE: Ms. Galvin was admitted and started on fluids to get her blood sugar better controlled as well as treated with medications to correct her blood pressure. Her initial blood pressure on admission was 182/116 with heart rate 99, saturation 100% on room air. She was afebrile. She did have good response to medications, but on the second day prior to discharge, she once again developed hypertension and required again initiation of treatment course which was amlodipine and lisinopril. She was given one single dose of metoprolol and had good response as well as with clonidine p.r.n. She was also complaining of some chest pains on the morning of discharge initially on 11/14/18. Therefore, she was kept an additional night to do further cardiac workup rule out and further manage her blood pressure. The chest pain was described as pressure. It went away with one nitro, but she also had a diagnosis of esophagitis and was reproducible. She had some issues with anxiety in the middle of the night and required some Xanax. She was complaining of muscle cramps although her electrolytes were within normal limits. This was treated with Zanaflex. She was also started on antibiotics with Rocephin for treatment of underlying urinary tract infection and transitioned to p.o. medication with ciprofloxacin. She was also started on eardrops on the right side for an external ear infection. On the morning of discharge, she was found to be stable. Blood pressure was 149/91 at discharge, heart rate 83, saturation 95% on room air, she was afebrile with temperature 97.7. It was felt that she had improved significantly clinically and was able to discharge to continue with outpatient management. PLAN: Ms. Galvin was discharged on 11/15/18 with instructions to followup with [facility] on 11/29/18 at 10:30 AM. She was to take all medications prescribed as directed and continue her insulin regimen and check her blood sugars at least 3 times a day and at night before bed. Diet was to increase as tolerated for diabetic diet. Activities to increase as tolerated. PRESCRIPTIONS AT DISCHARGE: 1. Phenergan 25 mg q.4h. as needed, #20, no refills. 2. Ciprofloxacin 500 mg twice daily, #10, no refills. 3. Ciprodex 0.3-0.1%, 4 drops to right ear twice daily for 7 days. 4. Lisinopril 5 mg daily, #30, no refills. 5. Reglan 5 mg twice daily as needed p.r.n. for nausea, #30. DISPOSITION: The patient was discharged to care of family friend. CONDITION ON DISCHARGE: Stable and improved. #[id number] [facility]
== END 2018-11-15 09:45 | disposition home or self-care (01) ==
LOC: ER 02:04 → INTOOBSV 07:32 → MS 07:32
PROVIDERS: ADMIT Nurse Practitioner Family; ATTEND Nurse Practitioner Family
DX: I16.0 Hypertensive urgency (principal); I10 Essential (primary) hypertension; E10.65 Type 1 diabetes mellitus with hyperglycemia; E10.43 Type 1 diabetes mellitus with diabetic autonomic (poly)neuropathy; K31.84 Gastroparesis; R11.2 Nausea with vomiting, unspecified; N39.0 Urinary tract infection, site not specified; B96.89 Other specified bacterial agents as the cause of diseases classified elsewhere; E83.42 Hypomagnesemia; E87.8 Other disorders of electrolyte and fluid balance, not elsewhere classified; H60.91 Unspecified otitis externa, right ear; R07.89 Other chest pain; F41.9 Anxiety disorder, unspecified; Z79.4 Long term (current) use of insulin
CPT/HCPCS: 96361 ×3; 96367 ×2; 96365; 96375 ×2; 96376 ×2; 96372 ×3; J0696 ×2; J7799; J1170; J1885; J2765; J2270; J2405; J2543; J2550 ×2; J7030; A4216 ×2; J3475; J1815 ×2; J7050 ×4; 85379; 82009; 80048 ×4; 82553 ×5; 80053; 87086; 82040; 80307 ×2; 82948 ×14; 83036; 36415 ×6; 82150 ×2; 81001; 85025 ×3; 82550 ×5; 87040 ×2; 84703; 83690 ×2; 83735 ×2; 85730; 85610; 84443; 84484 ×5; 83880; 36416 ×6; 83605; 74019; 71046; 74177; 76705; 94760 ×4; 99285; 93306; 93005 ×2; G0378